=== PATIENT | male | born 2000 | race African-American/Black ===

== ENCOUNTER 2019-12-29 21:42 | Emergency (ER) | payer BC ==
[~2019-12-29] VITALS: Ht 175.3 cm; Wt 102.1 kg
--- OUTSIDE RECORDS SUMMARY | 2019-12-29 21:44 | XMS REPORT ---
Author Author [facility] Address Unknown Phone Unavailable Care Team Providers Care Ingredient Scaler Name Role Phone Unavailable Unavailable Problems This patient has no known problems. Allergies, Adverse Reactions, Alerts This patient has no known allergies or adverse reactions. Medications This patient has no known medications. Encounters Start Date/Time End Date/Time Encounter Type Admission Type Attending [facility] Facility Care Department Encounter ID 2019-05-20 18:24:00 2019-05-20 18:24:00 Emergency [id number]
--- OUTSIDE RECORDS SUMMARY | 2019-12-29 21:44 | XMS REPORT ---
Author Author Elvira Little Organization [employer] Address Unknown Phone Unavailable Care Team Providers Care Master Control Engineer Name Role Phone Elvira Little Unavailable Allergies No Known Allergies Problems Problem Type Condition Code Onset Dates Condition Status Problem Sports physical Z02.5 Active Problem Visual acuity reduced H54.7 Active Problem Body mass index (BMI) 31.0-31.9, adult Z68.31 Active Medications No Known Medications Results No Known Results Summary Purpose [employer] Submission
--- OUTSIDE RECORDS SUMMARY | 2019-12-29 21:44 | XMS REPORT ---
Author Author Elvira Little Organization [employer] Address Unknown Phone Unavailable Care Team Providers Care Gym Supervisor Name Role Phone Elvira Little Unavailable Allergies, Adverse Reactions, Alerts Substance Reaction Event Type Cefzil swelling Drug Allergy Problems Problem Type Condition Code Onset Dates Condition Status Problem Sports physical Z02.5 Active Problem Visual acuity reduced H54.7 Active Problem Body mass index (BMI) 31.0-31.9, adult Z68.31 Active Assessment Body mass index (BMI) 31.0-31.9, adult Z68.31 Active Assessment Screening for STD (sexually transmitted disease) Z11.3 Active Assessment Urethritis N34.2 Active Medications Medication Code System Code Instructions Start Date End Date Status Dosage Zithromax [facility] [id number] 500 MG Orally once March 10, 2018 Active 2 tabs Results No Known Results Summary Purpose [employer] Submission
== END 2019-12-29 22:05 | disposition left against medical advice (07) ==
LOC: FSED 21:42
DX: R09.89 Other specified symptoms and signs involving the circulatory and respiratory systems (principal)